=== PATIENT | female | born 1975 | race Caucasian/White ===

== ENCOUNTER 2021-12-31 08:55 | Emergency (ER) | payer OTHER ==
[2021-12-31] MEDS ORDERED: Metoclopramide 10 MG/2 ML SDV IVPUSH ONE (09:31)
[2021-12-31] MEDS ORDERED: Ketorolac 15 MG/ML SDV IVPUSH ONE (09:31)
[2021-12-31] MEDS ORDERED: diphenhydrAMINE 50 MG/ML SDV IVPUSH ONE (09:31)
[2021-12-31] MEDS ORDERED: Sodium Chloride 0.9% 1,000 ML IV ONE (09:31)
== END 2021-12-31 11:30 | disposition home or self-care (01) ==
LOC: JD.ED 08:55
DX: J32.2 Chronic ethmoidal sinusitis (principal); E78.00 Pure hypercholesterolemia, unspecified; K21.9 Gastro-esophageal reflux disease without esophagitis; I10 Essential (primary) hypertension; Z79.899 Other long term (current) drug therapy; Z72.0 Tobacco use
CPT/HCPCS: 36415; 70450; 80053; 85025; 96374; 96375; 99284; J1200; J1885; J2765; J7030